=== PATIENT | male | born 1985 | race Caucasian/White ===

== ENCOUNTER 2018-08-15 15:19 | Emergency (ER) | payer OTHER ==
[2018-08-15 15:23] VITALS: BP 138/93
[2018-08-15] MEDS ORDERED: ceFAZolin(*) 1 GM VIAL 1 GM in NS(*) 0.9% 100 ML ADDVANT BAG 100 ML IV ONE (15:35)
--- NOTE | 2018-08-15 16:06 | ER Report ---
History and Physical Time Seen By MD: 15:23 Hx. of Stated Complaint: cut finger on router saw HPI/ROS CHIEF COMPLAINT: Cut right index finger on router saw. HISTORY OF PRESENT ILLNESS:33 year old male presents with cut to right index finger. Patient reports that he cut he finger pad on the router saw approximately 15-20 minutes ago. Avulsion to distal anterior tuft of right index finger. Reports pain is 3-4 out of 10 right now. Reports he has not taken anything for the pain. REVIEW OF SYSTEMS: Constitutional: No fevers. No loss of consciousness. Respiratory: No cough, no dyspnea. Cardiovascular: No chest pain, no palpitations. Gastrointestinal: No vomiting, no abdominal pain. Musculoskeletal: Pain to right index finger due to avulsion. Allergies: Coded Allergies: No Known Drug Allergies (Unverified , 08/15/18) Home Meds Active Scripts Hydrocodone Bit/Acetaminophen (HYDROCODON-ACETAMINOPHEN 5-325) 1 Each Tablet, 1 EACH PO Q4-6H PRN for PAIN, #12 TAB Prov:RANDELL PFEIFFER 08/15/18 Cephalexin 500 Mg Tab (KEFLEX 500 MG TAB) 500 Mg Tablet, 500 MG PO Q6H, #28 TAB Prov:RANDELL PFEIFFER 08/15/18 Past Medical/Surgical History No significant past medical or surgical history. Reviewed Nurses Notes: Yes Hx Smoking: No Exposure to Second Hand Smoke?: No Hx Substance Use Disorder: No Hx Alcohol Use: No Constitutional Vital Sign - Last 24 Hours 08/15/18 08/15/18 08/15/18 08/15/18 15:23 15:30 16:00 16:30 Temp 97.6 Pulse 87 74 75 74 Resp 16 B/P (MAP) 138/93 Pulse Ox 94 87 94 94 O2 Delivery Room Air Physical Exam General Appearance: The patient is alert, has no immediate need for airway protection and no current signs of toxicity. Eyes: Pupils equal and round no injection. Respiratory: Chest is non tender, lungs are clear to auscultation. Cardiac: regular rate and rhythm Musculoskeletal: Approximately 1.5cm in diameter avulsion to distal anterior tuft of right index finger. Muscle and subcutaneous tissue noted on inspection. Skin: No rashes or lesions. DIFFERENTIAL DIAGNOSIS: After history and physical exam differential diagnosis was considered for avulsion to right index finger, avulsion to distal phalange of index finger. Medical Decision Making EKG/Imaging Imaging Exam type: FINGER RIGHT 2ND DIGIT History: Right second finger injury Comparison: None. Findings: Three views of the right second finger were submitted. There is a thin soft tissue avulsion of the distal tip of the right index finger. There is also been avulsion of the distal tuft of the distal phalanx of this finger. There is extensive soft tissue swelling surrounding the entire right index finger IMPRESSION: 1. Avulsion of the distal soft tissues in the distal tuft of the distal phalanx of the right index finger with extensive soft tissue swelling Report Dictated By: Guillermina Cunha MD at 08/15/2018 4:06 PM Report E-Signed By: Guillermina Cunha MD at 08/15/2018 4:07 PM ED Course/Re-evaluation ED Course Patient admitted to an exam room, review of systems and physical exam performed, differential diagnoses considered. Patient reports he cut his finger on a router saw approximately 15-20 minutes before arrival. There is an approximately 1.5cm in diameter avulsion to distal tuft of distal phalange of right index finger. Muscle and subcutaneous tissue noted on inspection. IV started; Cefazolin, 1gram, IV antibiotics started for prophylaxis. Digital nerve block performed with 4ml of lidocaine and 4 ml of bupivicaine inserted at the medial and lateral aspects of the proximal phalange. Patient reports no pain in index finger after numbing. X-ray obtained. Finding of x-ray: Avulsion of the distal soft tissues in the distal tuft of the distal phalanx of the right index finger with extensive soft tissue swelling. Dr. Hardin consulted who then consulted with Dr. Diane. We are to clean and dress finger and [facility] will contact patient this evening for follow-up procedures. Index finger cleaned with NS and dressed with xeroform gauze, covered with tube gauze, secured with kerlix. Keflex, 500mg, qid ordered for antibiotic prophylaxis. Hydrocodone prescribed for pain relief as needed. Patient agrees with plan of care and has no further questions at this time. Decision to Disposition Date: Aug 15, 2018 Decision to Disposition Time: 16:54 Depart Departure Latest Vital Signs Vital Signs Date Time Temp Pulse Resp B/P (MAP) Pulse Ox O2 Delivery O2 Flow Rate FiO2 08/15/18 16:30 74 94 08/15/18 15:23 97.6 16 138/93 Room Air Impression: Primary Impression: Avulsion fracture of distal phalanx of finger Condition: Condition Unchanged Disposition: HOME OR SELF-CARE Referrals: RAJ DIANE MD New Scripts Hydrocodone Bit/Acetaminophen (HYDROCODON-ACETAMINOPHEN 5-325) 1 Each Tablet 1 EACH PO Q4-6H PRN for PAIN, #12 TAB Prov: RANDELL PFEIFFER FELT PULLER 08/15/18 Cephalexin 500 Mg Tab (KEFLEX 500 MG TAB) 500 Mg Tablet 500 MG PO Q6H, #28 TAB Prov: RANDELL PFEIFFER [facility] 08/15/18 Patient Instructions: Finger Fracture (ED) Additional Instructions: Please take Keflex 500mg every 6 hours. You may take hydrocodone every 4-6 hours as needed for pain. Dr. Diane from [facility] will contact you tonight regarding follow-up procedures. Please return to the ED if you experience fever, uncontrollable bleeding from the wound, pus from the wound, red streaks running up your finger, nausea, or vomiting. RISK CONTROL SPECIALIST/PA consult with MD: Verbally MD Consult Note: Consulted with Dr. Hardin, who then consulted with Dr. Diane regarding finger avulsion. ED to clean and dress wound. [facility] will contact patient this evening for follow-up procedures. Problem Qualifiers Primary Impression: Avulsion fracture of distal phalanx of finger Encounter type: initial encounter Fracture type: open Qualified Codes: S62.639B - Displaced fracture of distal phalanx of unspecified finger, initial encounter for open fracture RANDELL PFEIFFER FELT PULLER Aug 15, 2018 16:06
--- NOTE | 2018-08-15 16:11 | RADIOLOGY IMAGING REPORT ---
FACILITY: [facility] PATIENT NAME: Dilshad Monzon : 1985 MR: [id number] V: [id number] EXAM DATE: ORDERING PHYSICIAN: RANDELL PFEIFFER TECHNOLOGIST: Location: [facility] [place] Patient: Dilshad Monzon : 1985 Visit/Account:[id number] Date of Sevice: 08/15/2018 Exam type: FINGER RIGHT 2ND DIGIT History: Right second finger injury Comparison: None. Findings: Three views of the right second finger were submitted. There is a thin soft tissue avulsion of the d istal tip of the right index finger. There is also been avulsion of the distal tuft of the distal ph alanx of this finger. There is extensive soft tissue swelling surrounding the entire right index fin adams IMPRESSION: 1. Avulsion of the distal soft tissues in the distal tuft of the distal phalanx of the right index f janine with extensive soft tissue swelling Report Dictated By: Guillermina Cunha MD at 08/15/2018 4:06 PM Report E-Signed By: Guillermina Cunha MD at 08/15/2018 4:07 PM WSN:[email or web address]
[2018-08-15] MEDS ORDERED: CEPH500T7 PO (16:59)
[2018-08-15] MEDS ORDERED: HYDR-385 PO (16:59)
== END 2018-08-15 17:23 | disposition home or self-care (01) ==
LOC: ER 15:26
DX: S62.639B Displaced fracture of distal phalanx of unspecified finger, initial encounter for open fracture (principal); W31.2XXA Contact with powered woodworking and forming machines, initial encounter
CPT/HCPCS: 73140; 96365; 99283; J0690; J7050

== ENCOUNTER 2018-08-16 07:15 | Day surgery (SDC) | payer OTHER ==
[~2018-08-16] VITALS: Ht 175.3 cm; Wt 74.8 kg
[~2018-08-16 07:15] MED LIST: CEPH500T7 PO; HYDR-385 PO
[2018-08-16] MEDS ORDERED: NORMOSOL R SOLN(*) 1000 ML BAG 1,000 ML IV PRN (07:25)
[2018-08-16] MEDS ORDERED: ceFAZolin(*) 1 GM VIAL 1 GM in NS(*) 0.9% 100 ML ADDVANT BAG 100 ML IVPB ONE (07:25)
[2018-08-16] MEDS: LIDOCAINE/SOD BICARB 8.4% SYR ID ONE ×2 (07:25→07:47)
[2018-08-16 07:28] VITALS: BP 121/67
[2018-08-16] MEDS ORDERED: BUPIVACAINE 0.5% INJ 50ML VIAL INFIL ONE (08:14)
[2018-08-16] MEDS ORDERED: LIDOCAINE 2% MDV 400MG/20ML VL ONE (08:14)
[2018-08-16 09:25] VITALS: BP 116/75
--- NOTE | 2018-08-16 10:08 | OPERATIVE REPORT 1 ---
EVENT DATE: August 16, 2018 SURGEON: Burak Brush MD ANESTHESIA: Local LAYER OUT: LISA Ndiaye, MANAGER BUSINESS PLANNING PREOPERATIVE DIAGNOSIS Router injury to right nondominant index fingertip. POSTOPERATIVE DIAGNOSES 1. Router injury to right nondominant index fingertip. 2. Exposed distal phalanx. PROCEDURE PERFORMED Revision amputation of fingertip, right index, without flaps; [id number] ESTIMATED BLOOD LOSS Minimal. IV FLUIDS None. TOURNIQUET TIME None (Tourni-Cot was used). SPECIMENS None. COMPLICATIONS None. IMPLANTS None. DESCRIPTION OF PROCEDURE The patient was seen in the preoperative holding area. He was given a digital block using a 50/50 mix of lidocaine and Marcaine. We left his dressing in place at the time and did the block proximal to the dressing. By the time he got to the operating room, his finger was completely numb, which made the dressing removal pain free. The wound was irrigated briefly and then it was fully prepped with Iodine, after which we re-evaluated. I used a curette to debride the end of the bone and remove any superficial tissue that was adherent, after which we copiously irrigated the wound to ensure that we had minimized risk of infection. Subsequently, I took a rongeur and nibbled off the sharp end of the bone that had been created immediately beneath the hyponychium after having first lifted the nail plate and removed it, soaking it in Iodine. We took at look at the various options for coverage with the concept of an advance flap, [place] flap, versus reorientation of existing tissue. It looked like we could probably reorient existing tissue. It did slightly exceed the 3:1 rule and I did remove a small piece of the sterile matrix so it would not be as likely to create a hook-nail deformity but we were able to close the tissue in front of the bone and then for the most part close the soft tissue, only leaving a small area of defect with no exposed tendon or bone that would heal by secondary tension quite well. 5-0 Nylon was used to inset the flap tissue and 4-0 Monocryl was used for the narrowing of the soft tissue defect. The wound was irrigated. We removed the Tourni-Cot. There was minimal additional bleeding. We then placed a conforming dressing with Xeroform. He was then transferred to the recovery room in stable condition. AMALIA
== END 2018-08-16 10:00 | disposition home or self-care (01) ==
LOC: OR 07:15
PROVIDERS: ATTEND Orthopaedic Surgery Hand Surgery
DX: S69.81XA Other specified injuries of right wrist, hand and finger(s), initial encounter (principal)
CPT/HCPCS: 26951; A4565; J0690; J2001; J3490; J7050